=== PATIENT | male | born 1965 | race Caucasian/White ===

== ENCOUNTER 2017-05-26 05:28 | Day surgery (SDC) | payer BC ==
[~2017-05-26] VITALS: Ht 167.6 cm; Wt 100.0 kg
[2017-05-26] MEDS ORDERED: OMEPRAZOLE CAP 20M (06:22)
[2017-05-26] MEDS ORDERED: NORVASC10 MG PO (06:23)
[2017-05-26] MEDS ORDERED: LISINOPRIL TAB 20M (06:23)
[2017-05-26 06:25] VITALS: Ht 167.6 cm; Wt 100.0 kg
--- NOTE | 2017-05-26 09:55 | NUR ---
DISCHARGE INSTRUCTIONS REVIEWED, VERBALIZED UNDERSTANDING. DC'D VIA WC WITH STAFF AND
--- NOTE | 2017-05-26 11:49 | OP ---
PATIENT NAME: YANCY HADLEY MEDICAL RECORD: [id number] LOCATION:[facility] ADMISSION DATE: SURGEON: MORELIA ANGELES MD DATE OF OPERATION: 05/26/2017 SURGEON: Morelia Angeles MD PREOPERATIVE DIAGNOSIS: Screening for malignant neoplasm of colon. POSTOPERATIVE DIAGNOSIS: Screening for malignant neoplasm of colon. PROCEDURE PERFORMED: Colonoscopy. ANESTHESIA: Total intravenous anesthesia. COMPLICATIONS: None. SPECIMENS: None. Case was contaminated. ESTIMATED BLOOD LOSS: Minimal. OPERATIVE COURSE: After consent was obtained, the patient was taken to the endoscopy suite and a timeout was taken to confirm the correct patient and procedure, total intravenous anesthesia was given. The patient was placed in left lateral decubitus position. The colonoscope was inserted. A digital rectal exam was performed. No masses identified. The scope was inserted and the colon was insufflated. The scope was advanced to the cecum. The ileocecal valve was identified and pictured. Approximately 20 minutes was spent on withdrawal of the scope. There was no evidence of bleeding, one diverticulum was seen. No polyps were identified. No angiodysplasia. There was some melanosis noted in the rectal region, the scope was retroflexed upon in the rectum. No internal hemorrhoids identified. At this time, the scope was readvanced into the descending colon and colon was desufflated upon withdrawal. At the end of the procedure, the patient tolerated procedure well, no complications occurred. Repeat colonoscopy in 7-10 years. TRANSINT:[id number] Voice Confirmation ID: [id number] DOCUMENT ID: [id number] MORELIA ANGELES MD at 1149 CC: [id number] DICTATION DATE: 05/26/17 0849 SPECIMEN COLLECTOR: 05/26/17 1037 [facility] 05/26/17 [place] [id number]
== END 2017-05-26 09:56 | disposition home or self-care (01) ==
LOC: D.OPS 05:28
DX: Z12.11 Encounter for screening for malignant neoplasm of colon (principal); I10 Essential (primary) hypertension; K21.9 Gastro-esophageal reflux disease without esophagitis; Z01.812 Encounter for preprocedural laboratory examination